=== PATIENT | female | born 1980 | race American Indian/Alaskan Native ===

== ENCOUNTER 2019-03-23 16:50 | Emergency (ER) | payer SELFPAY ==
[2019-03-23 18:02] VITALS: BP 124/59
--- NOTE | 2019-03-23 18:04 | Event Note ---
ED Screening Note ED Screening Note: This initial assessment/diagnostic orders/clinical plan/treatment(s) is/are subject to change based on patients health status, clinical progression and re- assessment by fellow clinical providers in the ED. Further treatment and workup at subsequent clinical providers discretion. Patient/guardian urged not to elope from the ED as their condition may be serious if not clinically assessed and managed. Initial orders include: 38yo BF states that she has had a stiff neck that has become worse. She further states that she took a muscle relaxant earlier today with no relief.
== END 2019-03-23 20:02 | disposition left against medical advice (07) ==
LOC: ED 16:50
DX: M54.2 Cervicalgia (principal); Z53.21 Procedure and treatment not carried out due to patient leaving prior to being seen by health care provider

== ENCOUNTER 2021-09-05 06:03 | Day surgery (SDC) | payer OTHER ==
[2021-09-03 09:46] LABS: Hematocrit 26.4 % (30.3-42.9); Hemoglobin 8.2 gm/dl (10.1-14.3); Mean Corpuscular HGB Conc 31 % (30-34); Mean Corpuscular Volume 80 fl (79-97); Platelet Count 508 K/mm3 (140-440); Red Blood Count 3.32 M/mm3 (3.65-5.03); Red Cell Distribution Width 17.8 % (13.2-15.2)
[~2021-09-05 06:03] MED LIST: ACETAMINOPHEN 500 MG TAB PO SCH; LACTATED RINGERS 1,000 ML IV SCH; MIDAZOLAM 2 MG/2 ML INJ IV NR; SCOPOLAMINE TRANSDERMAL PATCH 72 HR TD NR
--- NOTE | 2021-09-05 07:33 | Short Stay Summary ---
Short Stay Documentation Date of service: 09/05/21 Narrative H&P: 41-year-old -0-1-2 with a history of dysfunctional uterine bleeding. Pelvic ultrasound suggested findings of endometrial polyp. The patient underwent endometrial biopsy with benign findings. She is elected for surgical management of her symptoms. - History Principal diagnosis: Dysfunctional uterine bleeding Past Medical History: No medical history Past Surgical History: Other (Tubal ligation) Social history: single - Allergies and Medications Current Medications: Allergies latex Adverse Reaction (Verified 03/23/19 18:02) Hives Home Medications Medication Instructions Recorded Confirmed Last Taken Type Cyclobenzaprine 10 mg PO HS 08/31/21 08/31/21 Unknown History Ferrous Sulfate [Iron 325 MG] 325 mg PO BID 08/31/21 08/31/21 Unknown History Active Medications Acetaminophen (Acetaminophen 500 Mg Tab) 1,000 mg PO PREOP MARTIN Lactated Ringer's (Lactated Ringers) 1,000 mls @ 100 mls/hr IV DIRECT MARTIN Stop: 09/05/21 23:59 Midazolam HCl (Midazolam 2 Mg/2 Ml Inj) 2 mg IV PREOP NR Stop: 09/05/21 23:59 Scopolamine (Scopolamine Transdermal Patch 72 Hr) 1 each TD PREOP NR Stop: 09/05/21 23:59 - Physical exam General appearance: no acute distress Integumentary: no rash Lungs: Clear to auscultation Breasts: deferred Heart: Regular rate Gastrointestinal: normal Female Genitourinary: deferred Rectal Exam: deferred - Brief post op/procedure progress note Date of procedure: 09/05/21 Pre-op diagnosis: Dysfunctional uterine bleed Post-op diagnosis: same Procedure: Hysteroscopy Myomectomy with MyoSure Endometrial ablation with NovaSure Anesthesia: GETA Surgeon: YENIFER CARBONE Estimated blood loss: minimal Pathology: list (Leiomyoma; endometrial curettings) Specimen disposition: to lab Condition: stable - Hospital course Hospital course: The patient was admitted the day of surgery underwent hysteroscopy and NovaSure. Please see operative note for details of surgery. Her postoperative course was uneventful. - Disposition Condition at discharge: Good Disposition: 01 HOME / SELF CARE / HOMELESS Short Stay Discharge Plan Activity: other (Pelvic rest for 1 week) Diet: regular Additional Instructions: Schedule follow-up with Dr. Carbone in 2 weeks Prescriptions: Ibuprofen [Motrin] 800 mg PO Q8HR PRN #30 tablet PRN Reason: Pain , Severe (7-10) HYDROcodone/APAP 5-325 [Lovilia 5/325] 1 each PO Q6HR PRN #15 tablet PRN Reason: Pain
[2021-09-05] MEDS ORDERED: ONDANSETRON 4 MG/2 ML INJ ONE (07:52)
[2021-09-05] MEDS ORDERED: LIDOCAINE MPF (2%) 20 MG/1 ML VIAL 5 ML ONE (07:52)
[2021-09-05] MEDS ORDERED: fentaNYL 100 MCG/2 ML INJ ONE (07:53)
[2021-09-05] MEDS ORDERED: propofoL 200 MG/20 ML VIAL IV ONE (07:53)
[2021-09-05] MEDS ORDERED: dexAMETHasone 20 MG/5 ML VIAL ONE (08:24)
[2021-09-05] MEDS ORDERED: ePHEDrine SULFATE 50 MG/1 ML INJ ONE (08:28)
--- NOTE | 2021-09-05 08:28 | Anesthesia Consultation ---
Anesthesia Consult and Med Hx Date of service: 09/05/21 - Airway Anesthetic Teeth Evaluation: Good (braces) ROM Head & Neck: Adequate Mental/Hyoid Distance: Adequate Mallampati Class: Class III Intubation Access Assessment: Possibly Difficult - Pre-Operative Health Status ASA Pre-Surgery Classification: ASA2 Proposed Anesthetic Plan: General - Pulmonary Hx Smoking: No Hx Respiratory Symptoms: No Hx Sleep Apnea: Yes (no prior diagnosis but reports hx witnessed apnea while sleeping) - Cardiovascular System Hx Hypertension: No - Central Nervous System CVA: No Hx Psychiatric Problems: Yes (anxiety) - Endocrine Hx Renal Disease: No Hx Liver Disease: No Hx Insulin Dependent Diabetes: No Hx Non-Insulin Dependent Diabetes: No Hx Thyroid Disease: No - Hematic Hx Anemia: Yes - Additional Comments Anesthesia Medical History Comments: No hx anesthetic complications.
--- NOTE | 2021-09-05 08:28 | Anesthesia Day of Surgery ---
Anesthesia Day of Surgery - Day of Surgery Patient Examined: Yes Patient H&P Reviewed: Yes Patient is NPO: Yes
[2021-09-05] MEDS ORDERED: ONDANSETRON 4 MG/2 ML INJ IV PRN (08:30)
[2021-09-05] MEDS ORDERED: HYDROcodone/ACETAMINOPHEN 5-325 MG TAB PO PRN (08:30)
[2021-09-05] MEDS ORDERED: HYDROmorphone 1 MG/1 ML INJ IV PRN (08:30)
--- NOTE | 2021-09-05 09:44 | Operative Report ---
Operative Report Operative Report: Date of procedure: September 05, 2021 Pre-operative diagnosis: Dysfunctional uterine bleeding Post-operative diagnosis: Same as above; submucosal calcified leiomyoma Procedure name(s): Hysteroscopy; partial removal leiomyoma with MyoSure; endometrial ablation via NovaSure Surgeon: Mouna Mckeon M.D. Drawing Press Operator: None Anesthesia: General endotracheal anesthesia Findings submucosal calcified leiomyoma Indication: 41-year-old -0-1-2 with a history of dysfunctional uterine bleeding. Procedure The patient was taken to the operating room and given general tracheal anesthesia without complication. The patient was prepped and draped in a normal sterile fashion. A bivalve speculum was placed in the patient's vagina single- tooth tenaculums placed on the anterior lip of the cervix. The cervical os was dilated with graduated dilators. A uterine sound was inserted. The hysteroscope was then placed. Insufflation of the uterine cavity was performed with normal saline. Gen. survey of the uterine cavity revealed submucosal leiomyoma. The MyoSure device was inserted through the hysteroscope. Multiple attempts were made with the MyoSure in order to shave down the leiomyoma. Additional attempts were made to insert a polyp forcep into the cervical os next to the hysteroscope for removal however the leiomyoma could not be extracted completely. The leiomyoma appeared to be significantly calcified and was resistant to resection with the MyoSure. A sampling of the endometrium was removed during the attempts with the polyp forcep. The hysteroscope was then removed. The NovaSure device was then inserted. The endometrial length was 6.0 cm and the uterine width was 3.7 cm. The device was engaged and it passed the surveillance of the uterine cavity. The NovaSure device was then deployed with a energy of 122 W that lasted for 2 minutes. The NovaSure device was then removed. The hysteroscope was again reinserted. There was evidence of charring of the endometrial surface. The remainder of the vaginal instruments were then removed atraumatically. The patient was then successfully extubated taken to the recovery room. All sponge laps and needle counts were correct 2.
[2021-09-05] MEDS ORDERED: LACTATED RINGERS 1,000 ML ONE (09:45)
[2021-09-05] MEDS ORDERED: SODIUM CHLORIDE 0.9% IRRIG SOLN 2000 ML IR ONE (09:56)
[2021-09-05 11:19] VITALS: BP 110/61
--- NOTE | 2021-09-05 12:26 | Post Anesthesia Evaluation ---
- Post Anesthesia Evaluation Patient Participated: Yes Airway Patent: Yes Stable Respiratory Function: Yes Nausea/Vomiting: No Temp > 96.8F: Yes Pain Manageable: Yes Adequeate Hydration: Yes Anesthesia Complications: No
== END 2021-09-05 11:35 | disposition home or self-care (01) ==
LOC: OR 06:03
PROVIDERS: ATTEND Obstetrics & Gynecology
DX: N93.8 Other specified abnormal uterine and vaginal bleeding (principal); D25.0 Submucous leiomyoma of uterus; N85.8 Other specified noninflammatory disorders of uterus; K21.9 Gastro-esophageal reflux disease without esophagitis; M19.90 Unspecified osteoarthritis, unspecified site; F41.9 Anxiety disorder, unspecified; Z20.822 Contact with and (suspected) exposure to COVID-19; Z91.040 Latex allergy status; Z79.899 Other long term (current) drug therapy; Z98.51 Tubal ligation status; Z87.442 Personal history of urinary calculi; Z87.440 Personal history of urinary (tract) infections; Z72.89 Other problems related to lifestyle; Z98.890 Other specified postprocedural states
CPT/HCPCS: 36415; 58563; 81025; 84703; 85027; 86850; 86900; 86901; 88305; C1782; J1100; J2405; J2704; J3010; J3490; J7120; U0003